=== PATIENT | male | born 1930 | race Caucasian/White ===

== ENCOUNTER → 2016-07-28 | Outpatient (CLI) | payer OTHER ==
[~2016-07-28] MED LIST: ACET-1257 PEG; ASPI1TAB83 PO; ATOR-22 PO; AUG0.05C12 TOP; CHOL100010 PO; FINA5TAB PO; HYDR25TA4 PO; ISOS10TA2 PO; METO25TA56 PO; MOME0.1O TOP; MULTTAB58 PO; TAMS0.4C38 PO
--- NOTE | 2016-07-28 09:44 | DIAGNOSTIC IMAGING REPORT ---
RENAL ULTRASOUND HISTORY: R33.9 Incomplete bladder [id number] COMPARISON: Renal ultrasound 09/03/2009. FINDINGS: Right kidney: The right kidney is significantly atrophic demonstrating marked cortical thinning and increased echogenicity. The right kidney measures 5.7 cm in length. There is an 8 mm cyst within the right kidney. No hydronephrosis. Left kidney: 11.3 cm. No hydronephrosis. The renal cortex is echogenic. Bladder: The prostate gland is enlarged measuring 5.4 cm. There is irregularity at the posterior bladder wall. IMPRESSION: 1. Progressive atrophy of the right kidney which measures 5.7 cm. 2. Echogenic bilateral kidneys suggesting medical renal disease. 3. Enlarged prostate. There is mild irregularity of the posterior bladder wall. 4. No hydronephrosis. Electronically signed by: Mathew Shelby M.D. 07/28/2016 9:42 AM Dictated Date/Time: 07/28/2016 9:40 AM
== END | disposition home or self-care (01) ==
LOC: C.ULTR 09:14
PROVIDERS: ATTEND Urology
DX: R33.9 Retention of urine, unspecified (principal); N40.0 Benign prostatic hyperplasia without lower urinary tract symptoms

== ENCOUNTER → 2016-09-02 | Outpatient (CLI) | payer OTHER ==
[2016-09-02 12:28] LABS: HEMATOCRIT 34.8 % (42-52); MEAN CELL VOLUME 90.9 fL (80-100); MEAN CORPUSCULAR HEMOGLOBIN 30.5 pg (25-34); MEAN CORPUSCULAR HGB CONC 33.6 g/dl (32-36); MEAN PLATELET VOLUME 9.6 fL (7.4-10.4); PLATELET COUNT 222 K/uL (130-400); RED BLOOD COUNT 3.83 M/uL (4.7-6.1); WHITE BLOOD COUNT 6.17 K/uL (4.8-10.8)
[2016-09-02 12:59] LABS: BASO % 0.2 %; BASO ABS # 0.01 K/uL (0-0.2); COMPLETE YES; EOS % 1.3 %; GIANT PLATELETS 1+; IG% 0.3 %; LYMPH % 59.2 %; LYMPH ABS # 3.65 K/uL (1.2-3.4); MONO % 6.2 %; NEUT % 32.8 %; OVALOCYTES 1+; TEAR DROP CELLS 1+
[2016-09-02 13:00] LABS: BLOOD UREA NITROGEN 30 mg/dl (7-18); BUN/CREATININE RATIO 21.2 (10-20); CALCIUM 8.7 mg/dl (8.5-10.1); CARBON DIOXIDE 29 mmol/L (21-32); CHLORIDE 104 mmol/L (98-107); GLUCOSE 186 mg/dl (70-99); POTASSIUM 4.1 mmol/L (3.5-5.1); SODIUM 140 mmol/L (136-145)
--- NOTE | 2016-09-07 12:53 | CODING QUERY MEDICAL NECESSITY ---
SUPPORTING DIAGNOSIS NEEDED A supporting diagnosis is required for the test/procedure performed on this patient in order for us to be reimbursed by the patient's insurance. Please provide a supporting diagnosis for the following test/procedure listed below next to the test name along with your signature. *If there is no additional diagnosis for this patient that would support the following test/procedure please document that below next to the test/procedure. Test(s)/Procedure(s) that require a supporting diagnosis: DOS 09/02 * Vitamin B12 DIAGNOSIS: Provider Signature: Date: Thank you Marce Brower Health Information Management Once completed, please kindly fax back to [phone] For questions please call [phone]
== END | disposition home or self-care (01) ==
LOC: C.LABBFT 07:47
PROVIDERS: ATTEND Urology
DX: N40.0 Benign prostatic hyperplasia without lower urinary tract symptoms (principal); C61 Malignant neoplasm of prostate; D64.9 Anemia, unspecified; N18.3 Chronic kidney disease, stage 3 (moderate)

== ENCOUNTER → 2017-02-14 | Outpatient (CLI) | payer OTHER | END | disposition home or self-care (01) | LOC: C.LABBFT 08:10 | PROVIDERS: ATTEND Urology | DX: C61 Malignant neoplasm of prostate (principal) ==

== ENCOUNTER → 2017-03-08 | Outpatient (CLI) | payer OTHER ==
[~2017-03-08] MED LIST changes: -FINA5TAB PO; +OPTIRAY 320 IV PRN
[2017-03-08 09:43] LABS: MEAN CORPUSCULAR HEMOGLOBIN 30.1 pg (25-34); MEAN CORPUSCULAR HGB CONC 33.8 g/dl (32-36); MEAN PLATELET VOLUME 9.4 fL (7.4-10.4); PLATELET COUNT 241 K/uL (130-400); RED BLOOD COUNT 4.38 M/uL (4.7-6.1); WHITE BLOOD COUNT 6.53 K/uL (4.8-10.8)
[2017-03-08 10:03] LABS: BLOOD UREA NITROGEN 31 mg/dl (7-18); BUN/CREATININE RATIO 19.6 (10-20); CALCIUM 9.4 mg/dl (8.5-10.1); CARBON DIOXIDE 30 mmol/L (21-32); CHLORIDE 106 mmol/L (98-107); GLUCOSE 109 mg/dl (70-99); POTASSIUM 4.8 mmol/L (3.5-5.1); SODIUM 140 mmol/L (136-145)
--- NOTE | 2017-03-08 10:47 | DIAGNOSTIC IMAGING REPORT ---
CHEST CT WITH CONTRAST HISTORY: Follow-up study for subsequent treatment strategy. PROSTATE CANCER TECHNIQUE: Multiaxial CT images of the chest were performed following the intravenous administration of contrast. A dose lowering technique was utilized adhering to the principles of ALARA. COMPARISON: CT abdomen and pelvis of same day, chest radiograph 01/09/2015. FINDINGS: Small subcentimeter nodules are seen throughout the thyroid, nonspecific and statistically benign. Mildly prominent nonspecific subcarinal lymph node is seen, 1.6 x 0.8 cm. Nonspecific mildly prominent right hilar lymph node is seen, 1.2 x 0.6 cm. No pathologically enlarged lymph nodes identified by CT size criteria. Heart is moderately enlarged with coronary arterial and mitral annular calcifications. Prosthetic aortic valve is noted. Moderate mixed plaquing involves the thoracic aorta without dissection or aneurysm identified. The opacified pulmonary arterial tree is unremarkable without evidence of pulmonary thromboembolic disease. Moderate upper lobe predominant centrilobular emphysema is noted without pneumothorax or pleural effusion. Respiratory motion limits evaluation of the lung bases. Dependent groundglass opacities suggest atelectasis. Subsegmental consolidative opacities are present within the basal left lower lobe and inferior segment lingula with mild bronchial wall thickening within this distribution. No suspicious pulmonary nodules or masses are identified. There is suggested layering stones and sludge within the gallbladder lumen. Severe right pancreatic atrophy noted. Soft tissues are unremarkable. Diffuse multifocal sclerotic metastasis are seen throughout the axial and appendicular skeletal system. No pathologic fracture identified. IMPRESSION: 1. Diffuse sclerotic metastasis are present throughout the imaged axial and appendicular skeletal system without pathologic fracture identified. 2. Limited evaluation of the lungs secondary to respiratory motion without evidence of pulmonary or definite kathy metastasis. 3. Subsegmental consolidative opacities of the left lung base with associated bronchial wall thickening may reflect pneumonitis with bronchitis or alternately atelectasis. 4. Severe right pancreatic atrophy. 5. Probable cholelithiasis and gallbladder sludge. 6. Emphysema. Electronically signed by: Ash Cortés M.D. 03/08/2017 10:45 AM Dictated Date/Time: 03/08/2017 10:19 AM
[2017-03-08 11:07] LABS: COMPLETE YES; EOSINOPHIL % 2.6 %; LARGE GRANULAR LYMPH ABSOLUTE 2.72 K/uL; LARGE GRANULAR LYMPHOCYTE % 41.7 %; LYMPH ABS # 1.03 K/uL (1.2-3.4); LYMPHOCYTE % 15.7 %; TEAR DROP CELLS 1+
--- NOTE | 2017-03-08 12:23 | DIAGNOSTIC IMAGING REPORT ---
CT OF THE ABDOMEN AND PELVIS WITH CONTRAST CLINICAL HISTORY: Prostate cancer. COMPARISON STUDY: Renal ultrasound July 28, 2016 and the body bone scan December 14, 2015. TECHNIQUE: Following IV administration of 119 mL of [id number], axial images of the abdomen and pelvis were obtained from the lung bases to the proximal femurs. Images were reviewed in the axial, sagittal, and coronal planes. IV contrast was administered without complication. A dose lowering technique was utilized adhering to the principles of ALARA. Oral contrast was administered. CT DOSE: 427.06 mGy.cm FINDINGS: The chest will be reported separately. Moderate elevation of the left hemidiaphragm is noted. The liver, spleen, adrenal glands and pancreas are normal. There is marked right renal atrophy with compensatory hypertrophy of the left kidney. The caliber and wall thickness of small and large bowel are normal. There is a fat-containing left inguinal hernia. There is extensive atherosclerotic plaque of the abdominal aorta. No ascites is present. No enlarged abdominal or pelvic lymph nodes are present. Note is made of a 2 cm x 1 cm nodule overlying the right gluteus aleida within the deep subcutaneous tissues. This is indeterminate. The prostate is mildly enlarged. Widespread blastic metastases are noted. Mild loss of height of the superior endplate of T11 is noted with severe loss of height of the L1 vertebral body with minimal retropulsion. IMPRESSION: 1. Extensive blastic metastatic disease throughout visualized skeletal structures. Severe L1 and mild T11 fracture deformities which are nonspecific but may reflect pathologic fractures. Minimal retropulsion at the L1 level. 2. No abdominal or pelvic lymphadenopathy. No additional sites of metastatic disease identified. 3. 2 x 1 cm nodule within the deep subcutaneous tissues overlying the right gluteus aleida muscle. This is indeterminate but of questionable clinical significance. Electronically signed by: Adarsh Rose M.D. 03/08/2017 12:21 PM Dictated Date/Time: 03/08/2017 10:20 AM
== END | disposition home or self-care (01) ==
LOC: C.CTS 07:30
PROVIDERS: ATTEND Physician Assistant Medical
DX: R94.6 Abnormal results of thyroid function studies (principal); I10 Essential (primary) hypertension; D64.9 Anemia, unspecified; C61 Malignant neoplasm of prostate; J43.9 Emphysema, unspecified

== ENCOUNTER → 2017-06-28 | Outpatient (CLI) | payer OTHER ==
[~2017-06-28] MED LIST changes: -OPTIRAY 320 IV PRN
[2017-06-28 13:40] LABS: BLOOD UREA NITROGEN 31 mg/dl (7-18); BUN/CREATININE RATIO 21.7 (10-20); CARBON DIOXIDE 26 mmol/L (21-32); CHLORIDE 103 mmol/L (98-107); CREATININE 1.41 mg/dl (0.60-1.40); GLUCOSE 142 mg/dl (70-99); SODIUM 137 mmol/L (136-145)
[2017-06-28 13:42] LABS: BASO % 0.1 %; BASO ABS # 0.01 K/uL (0-0.2); COMPLETE YES; EOS % 1.7 %; HEMATOCRIT 40.6 % (42-52); IG% 0.2 %; LYMPH ABS # 3.15 K/uL (1.2-3.4); MEAN CELL VOLUME 90.8 fL (80-100); MEAN CORPUSCULAR HEMOGLOBIN 30.2 pg (25-34); MEAN CORPUSCULAR HGB CONC 33.3 g/dl (32-36); MEAN PLATELET VOLUME 10.1 fL (7.4-10.4); MONO % 10.7 %; NEUT % 48.3 %; PLATELET COUNT 239 K/uL (130-400); RED BLOOD COUNT 4.47 M/uL (4.7-6.1); WHITE BLOOD COUNT 8.07 K/uL (4.8-10.8)
[2017-06-28 14:17] LABS: LYME DISEASE AB IGG NEG (NEG)
[2017-06-28 14:26] LABS: LYME DISEASE AB IGM POS (NEG)
[2017-07-05 09:51] LABS: 18KDIGG BAND NONREACTIVE (NONREACTIVE); 23KDIGG BAND NONREACTIVE (NONREACTIVE); 23KDIGM BAND NONREACTIVE (NONREACTIVE); 28KDIGG BAND NONREACTIVE (NONREACTIVE); 30KDIGG BAND NONREACTIVE (NONREACTIVE); 39KDIGG BAND NONREACTIVE (NONREACTIVE); 39KDIGM BAND NONREACTIVE (NONREACTIVE); 41KDIGG BAND NONREACTIVE (NONREACTIVE); 41KDIGM BAND NONREACTIVE (NONREACTIVE); 45KDIGG BAND NONREACTIVE (NONREACTIVE); 58KDIGG BAND NONREACTIVE (NONREACTIVE); 66KDIGG BAND NONREACTIVE (NONREACTIVE); 93KDIGG BAND NONREACTIVE (NONREACTIVE)
== END | disposition home or self-care (01) ==
LOC: C.LABBC 09:51
PROVIDERS: ATTEND Internal Medicine Geriatric Medicine
DX: E55.9 Vitamin D deficiency, unspecified (principal); N18.3 Chronic kidney disease, stage 3 (moderate); D64.9 Anemia, unspecified; R94.6 Abnormal results of thyroid function studies; I12.9 Hypertensive chronic kidney disease with stage 1 through stage 4 chronic kidney disease, or unspecified chronic kidney disease; T14.90XA Injury, unspecified, initial encounter; W57.XXXA Bitten or stung by nonvenomous insect and other nonvenomous arthropods, initial encounter

== ENCOUNTER → 2017-08-28 | Outpatient (CLI) | payer OTHER | LOC: C.LABBFT 08:00 | PROVIDERS: ATTEND Urology | DX: C61 Malignant neoplasm of prostate (principal); C79.51 Secondary malignant neoplasm of bone ==

== ENCOUNTER → 2017-09-22 | Outpatient (CLI) | payer OTHER ==
[2017-09-22 12:51] LABS: BASO % 0.3 %; BASO ABS # 0.02 K/uL (0-0.2); EOS % 1.3 %; HEMATOCRIT 41.3 % (42-52); HEMOGLOBIN 13.5 g/dL (14.0-18.0); IG# 0.02 K/uL (0.00-0.02); LYMPH % 48.8 %; LYMPH ABS # 3.74 K/uL (1.2-3.4); MEAN CELL VOLUME 90.8 fL (80-100); MEAN CORPUSCULAR HEMOGLOBIN 29.7 pg (25-34); MEAN CORPUSCULAR HGB CONC 32.7 g/dl (32-36); MEAN PLATELET VOLUME 9.5 fL (7.4-10.4); MONO % 8.7 %; MONO ABS # 0.67 K/uL (0.11-0.59); NEUT % 40.6 %; NEUT ABS # 3.11 K/uL (1.4-6.5); PLATELET COUNT 243 K/uL (130-400); RED CELL DISTRIBUTION WIDTH CV 13.9 % (11.5-14.5); RED CELL DISTRIBUTION WIDTH SD 45.4 fL (36.4-46.3); WHITE BLOOD COUNT 7.66 K/uL (4.8-10.8)
[2017-09-22 13:40] LABS: BLOOD UREA NITROGEN 30 mg/dl (7-18); CALCIUM 9.1 mg/dl (8.5-10.1); CARBON DIOXIDE 29 mmol/L (21-32); CREATININE 1.45 mg/dl (0.60-1.40); GLUCOSE 161 mg/dl (70-99); POTASSIUM 4.3 mmol/L (3.5-5.1); SODIUM 138 mmol/L (136-145)
== END | disposition home or self-care (01) ==
LOC: C.LABBFT 08:37
PROVIDERS: ATTEND Internal Medicine Geriatric Medicine
DX: I10 Essential (primary) hypertension (principal); D64.9 Anemia, unspecified; R94.6 Abnormal results of thyroid function studies

== ENCOUNTER → 2017-10-16 | Outpatient (CLI) | payer OTHER ==
[~2017-10-16] MED LIST changes: -ACET-1257 PEG; +ACET-1257 PO; +DENOINJ IM; +LEUP30IN3 IM
[2017-10-16 12:32] LABS: BASO % 0.1 %; BASO ABS # 0.01 K/uL (0-0.2); EOS ABS # 0.14 K/uL (0-0.5); HEMATOCRIT 39.8 % (42-52); HEMOGLOBIN 13.3 g/dL (14.0-18.0); IG# 0.02 K/uL (0.00-0.02); LYMPH % 41.9 %; LYMPH ABS # 2.91 K/uL (1.2-3.4); MEAN CELL VOLUME 91.1 fL (80-100); MEAN CORPUSCULAR HEMOGLOBIN 30.4 pg (25-34); MEAN CORPUSCULAR HGB CONC 33.4 g/dl (32-36); MEAN PLATELET VOLUME 9.5 fL (7.4-10.4); MONO % 8.8 %; MONO ABS # 0.61 K/uL (0.11-0.59); NEUT % 46.9 %; NEUT ABS # 3.26 K/uL (1.4-6.5); PLATELET COUNT 226 K/uL (130-400); RED CELL DISTRIBUTION WIDTH CV 14.2 % (11.5-14.5); RED CELL DISTRIBUTION WIDTH SD 47.7 fL (36.4-46.3); WHITE BLOOD COUNT 6.95 K/uL (4.8-10.8)
[2017-10-16 13:16] LABS: ALBUMIN 3.6 gm/dl (3.4-5.0); ALT/SGPT 23 U/L (12-78); AST/SGOT 19 U/L (15-37); BLOOD UREA NITROGEN 35 mg/dl (7-18); CARBON DIOXIDE 27 mmol/L (21-32); CREATININE 1.46 mg/dl (0.60-1.40); GLUCOSE 150 mg/dl (70-99); POTASSIUM 4.5 mmol/L (3.5-5.1); SODIUM 140 mmol/L (136-145)
[2017-10-16 13:21] LABS: ALKALINE PHOSPHATASE 59 U/L (45-117); TOTAL PROTEIN 6.5 gm/dl (6.4-8.2)
== END | disposition home or self-care (01) ==
LOC: C.LABBFT 09:02
PROVIDERS: ATTEND Internal Medicine Hematology & Oncology
DX: C61 Malignant neoplasm of prostate (principal)

== ENCOUNTER → 2017-10-25 | Outpatient (CLI) | payer OTHER ==
[~2017-10-25] MED LIST changes: +GADAVIST IV PRN
--- NOTE | 2017-10-25 19:43 | DIAGNOSTIC IMAGING REPORT ---
THORACIC SPINE COMBO CLINICAL HISTORY: 87 years-old Male presenting with METASTATIC PROSTATE CANCER. TECHNIQUE: Multisequence, multiplanar MR imaging of the thoracic spine was performed before and after the administration of intravenous contrast. IV contrast: 6.3 mL of Gadavist. COMPARISON: Chest CT from 03/08/2017. FINDINGS: Localizer images: Prostatomegaly. Diffuse heterogeneity of bone marrow implies underlying osseous metastatic disease. This correlates with the findings on prior CT from February. Multilevel degenerative changes in the cervical spine with disc osteophyte complexes from C3-4 through C6-7 resulting in varying degrees of spinal canal narrowing. No gross evidence of spinal cord impingement. Cervical spinal cord maintains normal morphology and signal intensity. Neural foraminal narrowing also suggested at the levels affected with disc osteophyte complexes. Normal thoracic kyphosis. Vertebral bodies maintain normal height and alignment. Intervertebral discs demonstrate diffuse desiccation but are otherwise preserved. No significant spinal canal or neural foraminal narrowing in the thoracic spine. No evidence of focal bony edema allowing for diffuse heterogeneity. Partially visualized lumbar spine demonstrates a pathologic compression deformity of L1, which is severe. Mild retropulsion of the superior portion of the L1 vertebral body. Please see separately dictated MR of the lumbar spine for further details. Paraspinal soft tissues remarkable for atrophy of the right kidney. Several left renal cysts evident. IMPRESSION: 1. Diffuse osseous metastatic disease. 2. Multilevel degenerative changes of the cervical spine. 3. No pathologic compression fracture in the thoracic spine or significant degenerative change. 4. Pathologic fracture of L1. Please C7 dictated MR of the lumbar spine. Electronically signed by: Arley Liriano M.D. 10/25/2017 7:42 PM Dictated Date/Time: 10/25/2017 7:35 PM
--- NOTE | 2017-10-25 19:49 | DIAGNOSTIC IMAGING REPORT ---
LUMBAR SPINE COMBINATION CLINICAL HISTORY: 87 years-old Male presenting with METASTATIC PROSTATE CANCER, low back pain. TECHNIQUE: Multisequence, multiplanar MR imaging of the lumbar spine was performed before and after the administration of intravenous contrast. IV contrast: 6.3 mL of Gadavist. COMPARISON: CT of abdomen pelvis from 03/08/2017. FINDINGS: Localizer images: Prostatomegaly. Chronic right renal atrophy. Chronic bladder outlet obstruction evidenced by trabeculation of the bladder wall. Diffuse heterogeneity of bone marrow consistent with known diffuse osseous metastatic disease. This is unchanged since the prior CT from February. Pathologic compression fracture of L1 with severe anterior vertebral body height loss. Slight retropulsion of the superior aspect of L1 without significant spinal canal narrowing. Remaining vertebral bodies demonstrate normal height. Diffuse intervertebral disc desiccation. No abnormal fluid signal intensity within the disc space apart from slight fluid in the T12-L1 disc, which is likely reactive to the pathologic compression fracture. Multilevel degenerative changes further detailed below: T12-L1: Minimal disc osteophyte complex without significant spinal canal or neural foraminal narrowing. L1-2: Mild disc bulge. No significant spinal canal narrowing. Minimal bilateral neural foraminal narrowing. L2-3: Disc bulge without significant spinal canal narrowing. Mild bilateral neural foraminal narrowing. L3-4: Disc bulge, facet arthropathy, and ligamentum flavum thickening result in circumferential effacement of the thecal sac though CSF signal intensity is maintained. Moderate bilateral neural foraminal narrowing. L4-5: Disc bulge, more severe facet arthropathy, and more severe ligamentum flavum thickening result in circumferential effacement of the thecal sac though CSF signal intensity is maintained. Severe right and moderate left neural foraminal narrowing. L5-S1: Disc bulge effaces the ventral thecal sac to the greatest degree at the paracentral location. In combination with facet arthropathy, severe bilateral neural foraminal narrowing results. Spinal cord ends in good position at the superior endplate of L1. Cauda equina crowding as mentioned above but otherwise normal morphology. No evidence of buckling. Paraspinal musculature demonstrates mild fatty atrophy. IMPRESSION: 1. Diffuse osseous metastatic disease. 2. Pathologic compression fracture of L1. No resulting significant spinal canal narrowing. 3. Multilevel spinal canal and neural foraminal narrowing secondary to degenerative changes. This is further detailed above. Electronically signed by: Arley Liriano M.D. 10/25/2017 7:47 PM Dictated Date/Time: 10/25/2017 7:42 PM
== END | disposition home or self-care (01) ==
LOC: C.MRI 17:03
PROVIDERS: ATTEND Internal Medicine Hematology & Oncology
DX: C61 Malignant neoplasm of prostate (principal); M84.48XA Pathological fracture, other site, initial encounter for fracture